=== PATIENT | female | born 1980 | race Caucasian/White ===

== ENCOUNTER 2022-07-12 12:25 | Emergency (ER) | payer SELFPAY ==
[2022-07-12] MEDS ORDERED: Acetaminophen 500 MG TAB ONE (14:20)
[2022-07-12] MEDS ORDERED: diphenhydrAMINE 50 MG/ML VIAL ONE (14:21)
[2022-07-12] MEDS ORDERED: Metoclopramide HCl 10 MG/2 ML VIAL ONE (14:21)
[2022-07-12] MEDS ORDERED: Ketorolac Tromethamine 30 MG/ML VIAL ONE (14:21)
[2022-07-12 15:30] LABS: SARS-CoV-2 NAA Rapid Test Not Detected (NotDetected)
== END 2022-07-12 16:06 | disposition home or self-care (01) ==
LOC: ERS 12:25
DX: J32.9 Chronic sinusitis, unspecified (principal); J34.89 Other specified disorders of nose and nasal sinuses; F17.210 Nicotine dependence, cigarettes, uncomplicated; Z20.822 Contact with and (suspected) exposure to COVID-19
CPT/HCPCS: 70450; 96374; 96375; J1200; J1885; J2765

== ENCOUNTER 2022-08-07 06:10 | Emergency (ER) | payer SELFPAY ==
[2022-08-07] MEDS ORDERED: Morphine 4 MG/ML VIAL ONE (06:59)
[2022-08-07] MEDS ORDERED: Ondansetron PF 4 MG/2 ML Vial ONE (06:59)
[2022-08-07] MEDS ORDERED: PROPOFOL 20 ML ONE (07:18)
[2022-08-07] MEDS ORDERED: Boostrix 0.5 ML (Tdap) VIAL (>/=7 yrs of age) ONE (07:59)
[2022-08-07] MEDS ORDERED: HYDROcodone/Acetaminophen 10/325 mg Tablet ONE (07:59)
== END 2022-08-07 09:02 | disposition home or self-care (01) ==
LOC: ERS 06:10
DX: S82.852A Displaced trimalleolar fracture of left lower leg, initial encounter for closed fracture (principal); W10.9XXA Fall (on) (from) unspecified stairs and steps, initial encounter; Y93.K1 Activity, walking an animal; Y92.009 Unspecified place in unspecified non-institutional (private) residence as the place of occurrence of the external cause; F17.210 Nicotine dependence, cigarettes, uncomplicated; Z23 Encounter for immunization
CPT/HCPCS: 27818; 90471; 90715; 96374; 96375; 99152; 99153; J2270; J2405; J2704

== ENCOUNTER 2022-08-21 10:44 | Day surgery (SDC) | payer SELFPAY ==
[2022-08-19 14:16] VITALS: BMI 30.2
[2022-08-21] MEDS ORDERED: CEFAZOLIN 2 GM VIAL ONE (12:29)
[2022-08-21] MEDS ORDERED: Sodium Chloride 0.9% 100 ML ONE (12:29)
[2022-08-21] MEDS ORDERED: Meperidine HCl/PF 25 MG/ML VIAL ONE (12:31)
[2022-08-21] MEDS ORDERED: Famotidine/PF 20 mg/2ml Vial ONE (12:31)
[2022-08-21] MEDS ORDERED: Fentanyl 250 MCG/5 ML VIAL ONE (12:34)
[2022-08-21] MEDS ORDERED: Dexamethasone 20 MG/5 ML VIAL ONE (12:36)
[2022-08-21] MEDS ORDERED: Ondansetron PF 4 MG/2 ML Vial ONE (12:36)
[2022-08-21] MEDS ORDERED: Glycopyrrolate 0.2 MG/ML 5 ML SYRINGE ONE (12:36)
[2022-08-21] MEDS ORDERED: PROPOFOL 200 MG/20 ML VIAL ONE (12:36)
[2022-08-21] MEDS ORDERED: Ketorolac Tromethamine 30 MG/ML VIAL ONE (12:36)
[2022-08-21] MEDS ORDERED: Lidocaine 1% PF 5 ML VIAL ONE (12:36)
[2022-08-21] MEDS ORDERED: Midazolam HCl 2 mg/2 ml Vial ONE (12:37)
[2022-08-21] MEDS ORDERED: Ketamine 50 MG/ML (10ML VIAL) ONE (12:49)
[2022-08-21] MEDS ORDERED: HYDROmorphone 0.5 MG/0.5 ML SYRINGE ONE (12:52)
[2022-08-21] MEDS ORDERED: Bupivacaine PF 0.5% 30 ML VIAL ONE (13:36)
[2022-08-21] MEDS ORDERED: Fentanyl 100 MCG/2 ML VIAL ONE (14:02)
[2022-08-21] MEDS ORDERED: HYDROcodone/Acetaminophen 5/325 mg Tablet ONE (15:19)
[2022-08-21] MEDS ORDERED: Ondansetron ODT 4 MG TAB ONE (15:19)
[2022-08-21] MEDS ORDERED: Metoclopramide HCl 10 MG/2 ML VIAL ONE (15:19)
== END 2022-08-21 16:47 | disposition home or self-care (01) ==
LOC: SDC 10:44
PROVIDERS: ATTEND Orthopaedic Surgery
PROC: 0QSK04Z Reposition Left Fibula with Internal Fixation Device, Open Approach (ICD-10-PCS; principal; 2022-08-21)
PROC: 0SSG04Z Reposition Left Ankle Joint with Internal Fixation Device, Open Approach (ICD-10-PCS; principal; 2022-08-21)
DX: S82.832A Other fracture of upper and lower end of left fibula, initial encounter for closed fracture (principal); S93.432A Sprain of tibiofibular ligament of left ankle, initial encounter; F17.200 Nicotine dependence, unspecified, uncomplicated; Z79.82 Long term (current) use of aspirin; X50.1XXA Overexertion from prolonged static or awkward postures, initial encounter; W19.XXXA Unspecified fall, initial encounter
CPT/HCPCS: C1713; C1776; J1100; J1170; J1885; J2175; J2250; J2405; J2704; J2765; J3010; J3490; Q0162; S0020; S0028

== ENCOUNTER 2022-08-22 20:40 | Emergency (ER) | payer SELFPAY | END 2022-08-22 21:57 | disposition home or self-care (01) | LOC: ERS 20:40 | DX: S80.12XA Contusion of left lower leg, initial encounter (principal); Y93.K9 Activity, other involving animal care; F17.290 Nicotine dependence, other tobacco product, uncomplicated ==